=== PATIENT | female | born 1950 | race Caucasian/White ===

== ENCOUNTER 2017-04-21 16:41 | Emergency (ER) | payer OTHER ==
[2017-04-21 16:41] VITALS: BMI 30.6
[2017-04-21 16:51] VITALS: BP 159/85; PULSE 75; RESP 16; TEMP 97.9; O2SAT 97
--- NOTE | 2017-04-21 17:12 | C.PDOC ---
History Of Present Illness 66-year-old female who is an [employer] employee presents to the ED requesting prophylactic pertussis vaccination after possible exposure to pertussis. Patient denies any other complaints at this time. Time Seen by Provider: 04/21/17 16:48 Chief Complaint (Nursing): Medical Clearance History Per: Patient History/Exam Limitations: no limitations Onset/Duration Of Symptoms: Hrs Current Symptoms Are (Timing): Still Present Additional History Per: Patient Past Medical History Reviewed: Historical Data, Nursing Documentation, Vital Signs Vital Signs: Last Vital Signs Temp 97.9 F 04/21/17 16:48 Pulse 75 04/21/17 16:48 Resp 16 04/21/17 16:48 BP 159/85 H 04/21/17 16:48 Pulse Ox 97 04/21/17 18:12 - Medical History PMH: CAD (with stents), Diabetes, HTN, Hypercholesterolemia Surgical History: Coronary Stent Family History: States: Unknown Family Hx - Social History Hx Tobacco Use: No Hx Alcohol Use: No Hx Substance Use: No - Immunization History Hx Tetanus Toxoid Vaccination: No Hx Influenza Vaccination: Yes Hx Pneumococcal Vaccination: No Review Of Systems Constitutional: Positive for: Other (+requesting prophylactic pertussis vaccination s/p exposure ). Negative for: Fever, Chills Physical Exam - Physical Exam Appears: Well, Non-toxic, No Acute Distress Skin: Normal Color, Warm, Dry, No Rash Head: Atraumatic, Normacephalic Eye(s): bilateral: PERRL Nose: No Flaring, No Discharge Oral Mucosa: Moist Throat: No Erythema, No Exudate, No Drooling Neck: Trachea Midline, Supple Chest: Symmetrical, No Deformity, No Tenderness Cardiovascular: Rhythm Regular, No Murmur Respiratory: No Decreased Breath Sounds, No Accessory Muscle Use, No Rales, No Rhonchi, No Stridor, No Wheezing Gastrointestinal/Abdominal: Soft, No Tenderness, No Guarding, No Rebound Back: No CVA Tenderness Extremity: Normal ROM, No Pedal Edema, Capillary Refill (less than 2 seconds ) Neurological/Psych: Oriented x3, Normal Speech, Normal Cognition Gait: Steady ED Course And Treatment O2 Sat by Pulse Oximetry: 97 (on RA) Pulse Ox Interpretation: Normal Progress Note: Patient received Adacel IM. On re-evaluation, pt is awake, playful, not in any apparent distress. Afebrile, hemodynamicaly stable. Non- toxic. Tolerate PO well in ED. PulseOx 97% RA. ENT: no acute findings. neck: Supple, (-) JVD. Lungs: CTA B/L, BS equal B/L. ABd: benitgn, (-)guarding, (-) rebound. Neurologicaly intact. Pt advised to F/u with PMD in 2-3 days for re- eval. return to ED if any worsening or new changes. Disposition Counseled Patient/Family Regarding: Diagnosis, Need For Followup - Disposition Referrals: Travis Cline MD [Staff Provider] - Disposition: HOME/ ROUTINE Disposition Time: 17:27 Condition: STABLE Instructions: Diphtheria/Acellular Pertussis/Tetanus Vaccine (DTaP) (By injection) Forms: statusboom (Estonian) - Clinical Impression Clinical Impression: Need for DTaP vaccination - PA / [employer] / Resident Statement MD/DO has reviewed & agrees with the documentation as recorded. - Scribe Statement The provider has reviewed the documentation as recorded by the Scribe (Opal Cain) All medical record entries made by the Scribe were at my direction and personally dictated by me. I have reviewed the chart and agree that the record accurately reflects my personal performance of the history, physical exam, medical decision making, and the department course for this patient. I have also personally directed, reviewed, and agree with the discharge instructions and disposition.
== END 2017-04-21 17:33 | disposition home or self-care (01) ==
LOC: C.ER 16:41
DX: Z23 Encounter for immunization (principal)